=== PATIENT | male | born 1985 | race Caucasian/White ===

== ENCOUNTER 2020-05-13 16:29 | Emergency (ER) | payer MEDICAID, OTHER ==
[~2020-05-13] VITALS: Ht 167.6 cm; Wt 72.7 kg
[~2020-05-13 16:29] MED LIST: NOCURR
[2020-05-13 16:53] VITALS: BP 116/70
[2020-05-13 17:55] LABS: COVID AG,FIA SOURCE NASOPHARYNGEAL
== END 2020-05-13 17:31 | disposition home or self-care (01) ==
LOC: EMS 16:29
DX: Z20.822 Contact with and (suspected) exposure to COVID-19 (principal)
CPT/HCPCS: 87426; 99283; C9803; U0003

== ENCOUNTER 2020-06-04 18:14 | Emergency (ER) | payer MEDICAID ==
[~2020-06-04] VITALS: Ht 172.7 cm; Wt 72.7 kg
[2020-06-04 18:21] VITALS: BP 137/76
== END 2020-06-04 20:06 | disposition home or self-care (01) ==
LOC: EMS 18:22
DX: U07.1 COVID-19 (principal); R05 Cough; F12.90 Cannabis use, unspecified, uncomplicated
CPT/HCPCS: 99283; U0003

== ENCOUNTER 2020-12-10 11:23 | Emergency (ER) | payer MEDICAID ==
[~2020-12-10] VITALS: Ht 170.2 cm; Wt 81.8 kg
[2020-12-10 11:25] VITALS: BP 113/58
== END 2020-12-10 16:00 | disposition home or self-care (01) ==
LOC: EMS 11:26
DX: M25.562 Pain in left knee (principal); F12.90 Cannabis use, unspecified, uncomplicated
CPT/HCPCS: 93971; 99284; 73562-TC; Z7502

== ENCOUNTER 2021-02-10 12:47 | Emergency (ER) | payer MEDICAID ==
[~2021-02-10] VITALS: Ht 170.2 cm; Wt 70.5 kg
[2021-02-10 15:13] VITALS: BP 114/62
== END 2021-02-10 15:31 | disposition home or self-care (01) ==
LOC: EMS 12:47
DX: S93.601A Unspecified sprain of right foot, initial encounter (principal); X50.1XXA Overexertion from prolonged static or awkward postures, initial encounter; Y93.68 Activity, volleyball (beach) (court); Y92.89 Other specified places as the place of occurrence of the external cause; Y99.8 Other external cause status
CPT/HCPCS: 99284; 73610-TC; 73630-TC; Z7502